=== PATIENT | male | born 1970 | race Caucasian/White ===

== ENCOUNTER 2025-10-13 10:06 | Emergency (ER) | payer MEDICAID, SELFPAY ==
[2025-10-13] VITALS (94 sets, daily range): BP systolic 46–142; BP diastolic 33–109; PULSE 59–79; TEMP 36.7–36.8; O2SAT 90–99; BMI 38.5
--- NOTE | 2025-10-13 10:20 | ECG_ITS ---
[facility] Test Date: 2025-10-13 Pat Name: Mauricio Zambrano Department: Room: - Gender: Male Data Architect: : 1970 Requested By: [id number] Order Number: [id number] Reading MD: LEONA KUMAR M.D. Measurements Intervals [place] Rate: 79 P: 10 TX: 198 QRS: 250 QRSD: 98 T: 112 QT: 372 QTc: 406 Interpretive Statements 1100 Sinus rhythm 3114 Cannot rule out anterior myocardial infarction, age undetermined 5120 Possible right ventricular hypertrophy 9150 abnormal ECG Compared to ECG 01/05/2019 17:16:53 Myocardial infarct finding now present Electronically Signed On 10-13-2025 14:19:52 EST by LEONA KUMAR M.D.
--- NOTE | 2025-10-13 10:21 | ED.GENADUL1 ---
HPI HPI - General Adult General Chief complaint: Dizziness Stated complaint: DIZZINESS NAUSEA DIARRHEA Time Seen by Provider: 10/13/25 10:17 History of Present Illness HPI narrative: 55-year-old male presents to the emergency department for nausea vomiting and diarrhea. He also feels dizzy. The nausea and vomiting and diarrhea began last night. He states he has had dizziness for 2 years. No complaints of fever chest pain or hematemesis or hematochezia. Related Data Home Medications ?Medication ?Instructions ?Recorded ?Confirmed apixaban 5 mg tablet (Eliquis) mg 10/13/25 atorvastatin 40 mg tablet mg 10/13/25 bumetanide 2 mg tablet mg 10/13/25 dapagliflozin propanediol 10 mg mg 10/13/25 tablet (Farxiga) gabapentin 100 mg capsule mg 10/13/25 meclizine 25 mg chewable tablet mg 10/13/25 metoprolol succinate 50 mg mg PO 10/13/25 tablet,extended release 24 hr Allergies Allergy/AdvReac Type Severity Reaction Status Date / Time ciprofloxacin (From Cipro) Allergy Swelling Verified 10/13/25 10:11 of Lip/Tongue/Throat Opioid HPI Opioid Management Most Recent Opioid Data: Ur Phencyclidine Scrn, (NEGATIVE) Negative Today, 14:35 Review of Systems ROS Narrative A ten point review of systems is negative except as noted above. PFSH PFSH Social History Little interest or pleasure in doing things: not at all Feeling down, depressed, or hopeless: nearly every day Exam Narrative Exam Narrative: Nurses note and vital signs reviewed General:The patient appears well and in no apparent distress.Patient is resting comfortably on cart. Skin:Warm, dry, no pallor noted.There is no rash noted. Head:Normocephalic, atraumatic Eye: Normal conjunctiva, no drainage Ears, Nose, Mouth, and Throat: oral mucosa is moist. Nares patent. Cardiovascular:Regular Rate and Rhythm Respiratory:Patient is in no distress, no accessory muscle use, lungs are clear to auscultation, no wheezing, rales or rhonchi Back:non-tender GI: Soft and nontender Musculoskeletal: The patient has no evidence of calf tenderness, no pitting edema, symmetrical pulses noted bilaterally Neurological:A&O, normal speech; upper and lower extremity strength, 5 and symmetric Psychiatric:Cooperative Constitutional Vital Signs, click to edit/add: Last Vital Signs Temp 98.0 F 10/13/25 10:15 Pulse 67 10/13/25 16:03 Resp 20 10/13/25 16:03 BP 91/54 10/13/25 16:03 Pulse Ox 96 10/13/25 16:03 O2 Del Method Room Air 10/13/25 16:03 Course Vital Signs Vital signs: Vital Signs Temperature 98.0 F 10/13/25 10:15 Pulse Rate 78 10/13/25 10:15 Respiratory Rate 18 10/13/25 10:15 Blood Pressure 74/54 L 10/13/25 10:15 Pulse Oximetry 95 10/13/25 10:15 Oxygen Delivery Method Room Air 10/13/25 10:15 Temperature 98.0 F 10/13/25 10:15 Pulse Rate 67 10/13/25 16:03 Respiratory Rate 20 10/13/25 16:03 Blood Pressure 91/54 10/13/25 16:03 Pulse Oximetry 96 10/13/25 16:03 Oxygen Delivery Method Room Air 10/13/25 16:03 Medical Decision Making [facility] Narrative Medical decision making narrative: The patient presented for dizziness after having a few days of nausea and vomiting. His BUN and creatinine are elevated and he was given IV fluids. Initially his blood pressure was in the 70s and that is now come up into the 90s. WBC is 15,000 and urinalysis shows no evidence of UTI. Chest x-ray and CT of the brain are negative. CT of the abdomen was performed to rule out obstruction and there are no acute findings on the CT of the abdomen per the radiologist. Findings were discussed with Dr. Ohara and we have agreed that the patient will be transferred to [facility]. I have spoken there to Dr. Goyal who accepts the patient. The patient is agreeable and stable for transfer. Findings are discussed thoroughly with the patient. A few weeks ago he was seen at [facility] and at that time left AGAINST MEDICAL ADVICE. At that time his creatinine was 3.35. The patient reports no history of kidney issues. Differential Diagnosis Differential Diagnosis: Nausea and vomiting, dehydration, acute kidney injury Medical Records Medical records reviewed: Yes I reviewed the patient's medical records Lab Data Lab results reviewed: Yes I reviewed the patient's lab results Labs: Lab Results 10/13/25 10/13/25 10/13/25 Range/Units 10:29 12:40 14:35 WBC 15.2 H (4.0-11.0) 10^3/uL RBC 5.55 (4.70-6.10) 10^6/uL Hgb 16.6 (14.0-18.0) g/dL Hct 49.1 (42.0-54.0) % MCV 88.5 (80.0-94.0) fL MCH 29.9 (25.9-34.0) pg MCHC 33.8 (29.9-35.2) g/dL RDW 13.3 (11.0-15.0) % Plt Count 314 (150-450) 10^3/uL MPV 11.3 (9.5-13.5) fL Neut % (Auto) 86.0 H (43.0-75.0) % Lymph % (Auto) 8.7 L (20.5-60.0) % [place] % (Auto) 4.7 (1.7-12.0) % Eos % (Auto) 0.0 L (0.9-7.0) % Baso % (Auto) 0.2 (0.2-2.0) % Neut # (Auto) 13.0 H (1.4-6.5) 10^3/uL Lymph # (Auto) 1.3 (1.2-3.8) 10^3/uL [place] # (Auto) 0.7 (0.3-0.8) 10^3/uL Eos # (Auto) 0.0 (0.0-0.7) 10^3/uL Baso # (Auto) 0.0 (0.0-0.1) 10^3/uL Abs Immat Gran (auto) 0.06 H (0.00-0.03) 10^3/uL Imm/Tot Granulo (auto) 0.4 (0.0-0.5) % Sodium 133 L (136-145) mmol/L Potassium 4.5 (3.5-5.1) mmol/L Chloride 98 (98-107) mmol/L Carbon Dioxide 22.8 (21.0-32.0) mmol/L Anion Gap 16.7 BUN 61.0 H (7.0-18.0) mg/dL Creatinine 3.60 H (0.70-1.30) mg/dL Est GFR ( Amer) 22 L (>=60 mL/min/1.73m^2) Est GFR (Non-Af Amer) 18 L (>=60 mL/min/1.73m^2) BUN/Creatinine Ratio 16.9 Glucose 169 H (74-106) mg/dL Lactate 1.7 (0.4-2.0) mmol/L Calcium 9.9 (8.5-10.1) mg/dL Total Bilirubin 0.8 (0.2-1.0) mg/dL Direct Bilirubin 0.2 (0.0-0.2) mg/dL AST 11 L (15-37) U/L ALT 18 (16-63) U/L Alkaline Phosphatase 82 (46-116) U/L Troponin I High Sens 17.8 (4.0-76.1) pg/mL Total Protein 8.5 H (6.4-8.2) g/dL Albumin 3.7 (3.4-5.0) g/dL Globulin 4.8 g/dL Albumin/Globulin Ratio 0.8 Urine Color Yellow (YELLOW) Urine Clarity Clear (CLEAR) Urine pH 5.0 (5.0-9.0) Ur Specific [place] 1.020 (1.005-1.025) Urine Protein 100 A (NEG/TRACE) mg/dL Urine Glucose (UA) 100 A (NEGATIVE) mg/dL Urine Ketones Negative (NEGATIVE) mg/dL Urine Occult Blood Negative (NEGATIVE) Urine Nitrite Negative (NEGATIVE) Urine Bilirubin Negative (NEGATIVE) Urine Urobilinogen 0.2 (0.2-1.0) EU/dL Ur Leukocyte Esterase Negative (NEGATIVE) Urine RBC 0-2 (0-2) #/HPF Urine WBC 0-2 A (NONE SEEN) #/HPF Ur Squamous Epith Cells Few A (NONE/RARE) #/LPF Urine Crystals None seen (None Seen) #/HPF Urine Bacteria Moderate A (NONE SEEN) #/HPF Urine Casts Seen A (NONE SEEN) #/LPF Hyaline Casts Moderate Urine Mucus Small A (NONE SEEN) Ur Culture Indicated? [facility] [place] Urine Opiates Screen Negative (NEGATIVE) Ur Buprenorphine Scrn Negative (NEGATIVE) Ur Oxycodone Screen Negative (NEGATIVE) Urine Methadone Screen Negative (NEGATIVE) Ur Barbiturates Screen Negative (NEGATIVE) U Tricyclic Antidepress Negative (NEGATIVE) Ur Phencyclidine Scrn Negative (NEGATIVE) Ur Amphetamines Screen Negative (NEGATIVE) U Methamphetamines Scrn Negative (NEGATIVE) U Benzodiazepines Scrn Negative (NEGATIVE) Urine Cocaine Screen Negative (NEGATIVE) U Cannabinoids Screen Positive A (NEGATIVE) Imaging Data Chest x-ray: Radiologist's impression: ITS Impressions Head CT 10/13/25 11:52 IMPRESSION: CHRONIC ISCHEMIC CHANGES. NO DEFINITE ACUTE INTRACRANIAL ABNORMALITY. Impression dictated by: Sagrario Tan M.D. 10/13/2025 1:00 PM Dictation Location: [employer] Electronically authenticated by: [id number] Y Date: 10/13/2025 13:00 Chest X-Ray 10/13/25 13:21 IMPRESSION: NO ACUTE FINDINGS Impression dictated by: Sagrario Tan M.D. 10/13/2025 2:00 PM Dictation Location: [employer] Electronically authenticated by: [id number] Y Date: 10/13/2025 14:00 Abdomen/Pelvis CT 10/13/25 13:39 IMPRESSION: No bowel obstruction or obstructive uropathy. There is a fat-containing periumbilical hernia. Gallstones are present. Impression dictated by: Niraj Putnam M.D. 10/13/2025 3:28 PM Dictation Location: [employer] Electronically authenticated by: [id number] Y Date: 10/13/2025 15:28 Discharge Plan Discharge Chief Complaint: Dizziness Clinical Impression: Hypotension, Acute kidney injury Patient Disposition: [facility] Time of Disposition Decision: 16:50 Discharge Location: [facility] Condition: Fair Mode of Transportation: EMS
[2025-10-13] MEDS: 0.9 % SODIUM CHLORIDE 1,000 ML 1000 ML IV ×2 (10:37→11:00)
[2025-10-13 10:52] LABS: Hematocrit 49.1 % (42.0-54.0); Hemoglobin 16.6 g/dL (14.0-18.0); Immature Granulocytes Abs Auto 0.06 10^3/uL (0.00-0.03); Immature Granulocytes Pct Auto 0.4 % (0.0-0.5); Lymphocytes Absolute Auto 1.3 10^3/uL (1.2-3.8); Mean Corpuscular HGB Conc 33.8 g/dL (29.9-35.2); Mean Corpuscular Hemoglobin 29.9 pg (25.9-34.0); Mean Corpuscular Volume 88.5 fL (80.0-94.0); Platelet Count 314 10^3/uL (150-450); Red Blood Count 5.55 10^6/uL (4.70-6.10); White Blood Count 15.2 10^3/uL (4.0-11.0)
[2025-10-13 10:54] LABS: Anion Gap 16.7; Blood Urea Nitrogen 61.0 mg/dL (7.0-18.0); Calcium 9.9 mg/dL (8.5-10.1); Carbon Dioxide 22.8 mmol/L (21.0-32.0); Chloride 98 mmol/L (98-107); Estimated GFR (African America 22 (>=60 mL/min/1.73m^2); Estimated GFR (Non-African Ame 18 (>=60 mL/min/1.73m^2); Glucose 169 mg/dL (74-106); Potassium 4.5 mmol/L (3.5-5.1); Sodium 133 mmol/L (136-145)
--- NOTE | 2025-10-13 11:52 | CT_ITS ---
The [address] [address] Patient Name: VIJAYA BARAHONA MRN: [id number] date: 1970 Sex: M Assigned Patient Location: ER Current Patient Location: Accession/Order Number: [id number] Exam Date: 10/13/2025 12:00 Report Date: 10/13/2025 13:00 At the request of: DALY FAJARDO MD Procedure: CT head/brain wo con CLINICAL DATA: Dizziness, blurred vision and shortness of breath. Hypotension. Prior CVA. CT BRAIN WITHOUT CONTRAST: COMPARISON: None TECHNIQUE: Contiguous axial unenhanced images were obtained through the brain. This CT exam was performed using one or more following dose reduction techniques: Automated exposure control, adjustment of the mA and/or kV according to patient size, or use of iterative reconstruction technique. FINDINGS: There is generalized atrophy. The ventricles are normal in size and position. Mild white matter hypodensity is present suggesting microvascular disease. 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 There is also minimal encephalomalacia at the posterior right cerebellum There are no additional areas of abnormal attenuation. There is no hemorrhage, mass effect or extra-axial collections. There is mild sphenoid mucosal thickening. The remaining imaged paranasal sinuses and mastoid air cells are clear. Minor vertebral artery and carotid siphon plaque is present. CT/CT head/brain wo con IMPRESSION: CHRONIC ISCHEMIC CHANGES. NO DEFINITE ACUTE INTRACRANIAL ABNORMALITY. Impression dictated by: Sagrario Tan M.D. 10/13/2025 1:00 PM Dictation Location[facility] Electron[facility] authenticated by: [id number] Y Date: 10/13/2025 13:00
[2025-10-13 12:47] LABS: Alanine Aminotransferase 18 U/L (16-63); Albumin Globulin Ratio 0.8; Albumin Level 3.7 g/dL (3.4-5.0); Alkaline Phosphatase 82 U/L (46-116); Aspartate Amino Transferase 11 U/L (15-37); Globulin 4.8 g/dL; Total Protein 8.5 g/dL (6.4-8.2)
--- NOTE | 2025-10-13 13:21 | XR_ITS ---
The [place] [address] Patient Name: VIJAYA BARAHONA MRN: [id number] date: 1970 Sex: M Assigned Patient Location: ER Current Patient Location: ER Accession/Order Number: [id number] Exam Date: 10/13/2025 13:28 Report Date: 10/13/2025 14:00 At the request of: DALY FAJARDO MD Procedure: XR chest 1V PORTABLE AP ERECT CHEST 1330 hours CLINICAL HISTORY: Hypotension COMPARISON: None Evaluation is slightly limited by body habitus. There are median sternotomy wires. The heart is within normal limits. There is no vascular congestion. Subtle left tracheal deviation is seen. No consolidation is noted. There is no sizable effusion or pneumothorax. The osseous structures are intact. There is endplate spurring at the spine. XR/XR chest 1V IMPRESSION: NO ACUTE FINDINGS Impression dictated by: Sagrario Tan M.D. 10/13/2025 2:00 PM Dictation Location: [place] [address] Electronically authenticated by: [id number] Y Date: 10/13/2025 14:00
--- NOTE | 2025-10-13 13:39 | CT_ITS ---
[address] [address] Patient Name: VIJAYA BARAHONA MRN: [id number] date: 1970 Sex: M Assigned Patient Location: ER Current Patient Location: .[facility] Accession/Order Number: [id number] Exam Date: 10/13/2025 14:11 Report Date: 10/13/2025 15:28 At the request of: DALY FAJARDO MD Procedure: CT abdomen pelvis wo con CT abdomen pelvis wo con 10/13/2025 2:18 PM SIGNS AND SYMPTOMS: ^Elevated BUN and creatinine, rule out obstruction, nausea and vomiting TECHNIQUE: Multidetector ct axial images of the abdomen and pelvis were obtained without IV contrast. Multiplanar reformats were performed and reviewed to further define anatomy and possible pathology. CT was performed with one or more of the following dose reduction techniques: Automated exposure control, adjustment of the mA and/or kV according to patient size, or use of iterative reconstruction technique. COMPARISON: None. FINDINGS: Lower Chest: Atherosclerotic changes are noted in the carotid bifurcations. ABDOMEN: Liver: Within normal limits. Bile Ducts: Normal caliber. Gallbladder: Stones are noted in the gallbladder. Pancreas: Within normal limits. Spleen: Within normal limits. Adrenals: Within normal limits. Kidneys: Within normal limits. Pelvis: Reproductive Organs: No pelvic masses. Ureters: Within normal limits. Bladder: Within normal limits. Bowel: There are uncomplicated colonic diverticula. There is a normal appendix in the right lower quadrant. There is no evidence of bowel obstruction. Mesenteric Lymph Nodes: No enlarged mesenteric lymph nodes. Peritoneum: No ascites or free air, no fluid collection. Vessels: Atherosclerotic changes are noted in the abdominal aorta and its branches. Retroperitoneum: Within normal limits. Abdominal Wall: There is a fat-containing periumbilical hernia. Bones: Degenerative changes are noted in the thoracolumbar spine, hips, and sacroiliac joints. CT/CT abdomen pelvis wo con IMPRESSION: No bowel obstruction or obstructive uropathy. There is a fat-containing periumbilical hernia. Gallstones are present. Impression dictated by: Niraj Putnam M.D. 10/13/2025 3:28 PM Dictation Location: [employer] Electronically authenticated by: [id number] Y Date: 10/13/2025 15:28
[2025-10-13 13:48] LABS: Lactate/Lactic Acid 1.7 mmol/L (0.4-2.0)
[2025-10-13 15:04] LABS: Glucose Urine UA 100 mg/dL (NEGATIVE)
[2025-10-13 15:21] LABS: Cannabinoid Screen Urine POSITIVE (NEGATIVE); Methamphetamines Screen Urine NEGATIVE (NEGATIVE); Tricyclic Antidepressant Urine NEGATIVE (NEGATIVE)
[2025-10-13 15:39] LABS: Cast Seen? SEEN #/LPF (NONE SEEN); Crystals Seen? None Seen #/HPF (None Seen)
[2025-10-13 15:41] LABS: Urine Culture Indicated YES-FRMC
[2025-10-13] MEDS: 0.9 % SODIUM CHLORIDE 1,000 ML 200 ML IV ×2 (15:46→20:30)
== END 2025-10-13 20:38 | disposition short-term general hospital (02) ==
PROVIDERS: Emergency Provider Emergency Medicine
DX: N17.9 Acute kidney failure, unspecified (principal); I95.9 Hypotension, unspecified; R42 Dizziness and giddiness; R11.2 Nausea with vomiting, unspecified
CPT/HCPCS: 36415; 70450; 71045; 74176; 80048; 80076; 80307; 81001; 83605; 84484; 85025; 87040; 87086; 93005; 96361; 96374; 99285; J2405